=== PATIENT | female | born 1980 | race Caucasian/White ===

== ENCOUNTER 2016-03-16 00:39 | Observation (INO) | payer OTHER ==
[~2016-03-16] VITALS: Ht 170.2 cm; Wt 86.4 kg
[~2016-03-16 00:39] MED LIST: ATARAX,VISTARIL25 MG PO; GABAPENTIN300 MG PO
[2016-03-16 01:41] LABS: HEMATOCRIT 39.1 % (36.0-46.0); MCH 29.8 PG (29.0-34.0); MCV 85.2 FL (83-99); MEAN PLAT.VOLUME 10.9 uM^3 (9.5-12.4); PLATELET COUNT 213 K/uL (156-360); RBC DIS.WIDTH-CV 12.3 % (11.8-14.6); RBC DIS.WIDTH-SD 37.4 % (39-53); RED BLOOD COUNT 4.59 M/uL (3.80-5.20); WHITE BLOOD COUNT 8.1 K/uL (4.1-10.2)
[2016-03-16 01:52] LABS: CHLORIDE 111 mEq/L (99-109); POTASSIUM 3.9 mEq/L (3.7-5.4); SODIUM 140 mEq/L (136-147)
[2016-03-16 01:54] LABS: GLUCOSE 102 mg/dL (70-99)
[2016-03-16 01:56] LABS: ANION GAP 8 MEQ/L (2-14)
[2016-03-16 01:58] LABS: GFR ESTIMATE (CALCULATED) > 59 mL/min/
[2016-03-16 01:59] LABS: UREA NITROGEN (BUN) 12 mg/dL (9-23)
[2016-03-16 02:02] LABS: TROP-I INTERPRETATION NEGATIVE; TROPONIN-I < 0.01 ng/mL (0.0-0.30)
[2016-03-16] MEDS ORDERED: CLONIDINE HCL0.2 MG PO (02:28)
[2016-03-16] MEDS ORDERED: PROPRANOLOL HCL60 M1 PO (02:29)
[2016-03-16 02:30] LABS: D-DIMER ELISA 0.55 mg/L FEU (< 0.57)
[2016-03-16] MEDS ORDERED: ATARAX,VISTARIL50 MG PO ×2 (02:30→08:20)
[2016-03-16] MEDS ORDERED: PRAZOSIN HCL5 MG PO (02:31)
[2016-03-16] MEDS ORDERED: METHADONE H5 MG/5 ML PO (04:47)
[2016-03-16] MEDS ORDERED: CLONIDINE HCL0.1 MG PO (05:58)
[2016-03-16] MEDS ORDERED: GABAPENTIN400 MG PO (05:59)
[2016-03-16] MEDS ORDERED: SAPHRIS10 MG SL (06:00)
[2016-03-16] MEDS ORDERED: INDERAL LA60 MG PO (06:13)
[2016-03-16 08:17] LABS: TROP-I INTERPRETATION NEGATIVE; TROPONIN-I < 0.01 ng/mL (0.0-0.30)
[2016-03-16 14:32] LABS: TROP-I INTERPRETATION NEGATIVE; TROPONIN-I < 0.01 ng/mL (0.0-0.30)
[2016-03-16 14:44] LABS: ADD MIUA? NO; BILIRUBIN NEGATIVE; BLOOD NEGATIVE; GLUCOSE (STRIP) NEGATIVE; KETONES NEGATIVE; LEUKOCYTES NEGATIVE; NITRITE NEGATIVE; PROTEIN (STRIP) NEGATIVE; SPECIFIC GRAVITY 1.011 (1.000-1.030); UCUL ADDED? NO; UROBILINOGEN 0.2 MG/DL (0.2-1.0)
[2016-03-16 14:45] LABS: COLOR PALE STRAW ((YELLOW))
[2016-03-16 15:01] VITALS: BP 99/52
[2016-03-16] MEDS ORDERED: Vitamin B-12 SL (15:29)
[2016-03-16 15:31] VITALS: BP 100/63
[2016-03-16 15:31] LABS: AMPHETAMINES QUANT VALUE 0 NG/ML; BARBITUATES QUANT VALUE 0 NG/ML; BENZODIAZEPINES QUANT VALUE 0 NG/ML; BENZODIAZEPINES, URINE SCREEN Negative (200 ng/mL); MARIJUANA QUANT VALUE 0 NG/ML; OPIATES QUANTITATIVE VALUE 0 NG/ML; PHENCYCLIDINE QUANT VALUE 0 NG/ML
== END 2016-03-16 16:30 | disposition home or self-care (01) ==
LOC: EME 00:39 → EDOF 05:13
PROVIDERS: Hospitalist; Physician Assistant Medical
DX: R00.2 Palpitations (principal); R94.31 Abnormal electrocardiogram [ECG] [EKG]; F11.20 Opioid dependence, uncomplicated; R11.0 Nausea; I42.9 Cardiomyopathy, unspecified; Z86.711 Personal history of pulmonary embolism; F17.290 Nicotine dependence, other tobacco product, uncomplicated; Z88.8 Allergy status to other drugs, medicaments and biological substances
CPT/HCPCS: 71020; 71275; 80048; 81003; 82607; 83880; 84443; 84484; 85027; 85379; 93005; 99281; 99285; G0378; J1650; J1885; J7030; Q0169; Q0177

== ENCOUNTER 2016-04-11 22:09 | Emergency (ER) | payer OTHER ==
[~2016-04-11] VITALS: Ht 170.2 cm; Wt 95.7 kg
[~2016-04-11 22:09] MED LIST changes: +ATARAX,VISTARIL50 MG PO; +CLONIDINE HCL0.1 MG PO; +CLONIDINE HCL0.2 MG PO; +GABAPENTIN400 MG PO; +INDERAL LA60 MG PO; +METHADONE H5 MG/5 ML PO; +PRAZOSIN HCL5 MG PO; +PROPRANOLOL HCL60 M1 PO; +SAPHRIS10 MG SL; +Vitamin B-12 SL
[2016-04-11 22:51] LABS: MCH 28.9 PG (29.0-34.0); MCHC 34.9 G/DL (30.0-36.0); MEAN PLAT.VOLUME 10.7 uM^3 (9.5-12.4); PLATELET COUNT 201 K/uL (156-360); RBC DIS.WIDTH-CV 12.2 % (11.8-14.6); RBC DIS.WIDTH-SD 36.5 % (39-53); RED BLOOD COUNT 4.46 M/uL (3.80-5.20); WHITE BLOOD COUNT 8.4 K/uL (4.1-10.2)
[2016-04-11 23:02] LABS: CHLORIDE 108 mEq/L (99-109); POTASSIUM 4.1 mEq/L (3.7-5.4); SODIUM 139 mEq/L (136-147)
[2016-04-11 23:03] LABS: GLUCOSE 109 mg/dL (70-99)
[2016-04-11 23:05] LABS: ANION GAP 8 MEQ/L (2-14)
[2016-04-11 23:07] LABS: GFR ESTIMATE (CALCULATED) > 59 mL/min/
[2016-04-11 23:08] LABS: UREA NITROGEN (BUN) 12 mg/dL (9-23)
[2016-04-11 23:13] LABS: TROP-I INTERPRETATION NEGATIVE; TROPONIN-I < 0.01 ng/mL (0.0-0.30)
[2016-04-12 00:21] LABS: D-DIMER ELISA 0.65 mg/L FEU (< 0.57)
[2016-04-12 00:55] LABS: TROP-I INTERPRETATION NEGATIVE; TROPONIN-I < 0.01 ng/mL (0.0-0.30)
[2016-04-12 02:09] VITALS: BP 127/74
== END 2016-04-12 02:04 | disposition home or self-care (01) ==
LOC: EME 22:09
PROVIDERS: Emergency Medicine
DX: R07.9 Chest pain, unspecified (principal); R00.2 Palpitations; R79.1 Abnormal coagulation profile; R06.02 Shortness of breath; R42 Dizziness and giddiness; Z86.711 Personal history of pulmonary embolism; F17.200 Nicotine dependence, unspecified, uncomplicated
CPT/HCPCS: 71020; 71275; 80048; 84484; 85027; 85379; 93005; 99281; 99285

== ENCOUNTER 2016-04-13 16:34 | Emergency (ER) | payer OTHER ==
[~2016-04-13] VITALS: Ht 170.2 cm; Wt 95.3 kg
[2016-04-13 17:06] LABS: HEMATOCRIT 38.3 % (36.0-46.0); MCH 29.5 PG (29.0-34.0); MCHC 35.2 G/DL (30.0-36.0); MCV 83.8 FL (83-99); MEAN PLAT.VOLUME 10.5 uM^3 (9.5-12.4); PLATELET COUNT 224 K/uL (156-360); RBC DIS.WIDTH-CV 12.3 % (11.8-14.6); RED BLOOD COUNT 4.57 M/uL (3.80-5.20); WHITE BLOOD COUNT 9.1 K/uL (4.1-10.2)
[2016-04-13 17:18] LABS: CHLORIDE 109 mEq/L (99-109); POTASSIUM 3.9 mEq/L (3.7-5.4); SODIUM 142 mEq/L (136-147)
[2016-04-13 17:19] LABS: GLUCOSE 107 mg/dL (70-99)
[2016-04-13 17:21] LABS: ANION GAP 8 MEQ/L (2-14)
[2016-04-13 17:23] LABS: GFR ESTIMATE (CALCULATED) > 59 mL/min/
[2016-04-13 17:24] LABS: UREA NITROGEN (BUN) 9 mg/dL (9-23)
[2016-04-13 17:27] LABS: TROP-I INTERPRETATION NEGATIVE; TROPONIN-I < 0.01 ng/mL (0.0-0.30)
[2016-04-13 22:13] LABS: QUANTITATIVE HCG < 4.0 MIU/ML
[2016-04-14 00:08] VITALS: BP 143/86
== END 2016-04-14 00:09 | disposition home or self-care (01) ==
LOC: EME 16:34
DX: I49.3 Ventricular premature depolarization (principal); F17.200 Nicotine dependence, unspecified, uncomplicated; Z86.711 Personal history of pulmonary embolism
CPT/HCPCS: 71020; 80048; 84484; 84702; 85027; 93005; 99281; 99284

== ENCOUNTER 2016-05-28 18:10 | Emergency (ER) | payer OTHER ==
[~2016-05-28] VITALS: Ht 170.2 cm; Wt 98.4 kg
[2016-05-28 18:55] LABS: HEMATOCRIT 42.7 % (36.0-46.0); MCH 28.7 PG (29.0-34.0); MEAN PLAT.VOLUME 10.4 uM^3 (9.5-12.4); PLATELET COUNT 283 K/uL (156-360); RBC DIS.WIDTH-CV 12.8 % (11.8-14.6); RBC DIS.WIDTH-SD 40.3 % (39-53); RED BLOOD COUNT 4.91 M/uL (3.80-5.20); WHITE BLOOD COUNT 9.8 K/uL (4.1-10.2)
[2016-05-28 19:03] LABS: CHLORIDE 106 mEq/L (99-109); POTASSIUM 4.1 mEq/L (3.7-5.4); SODIUM 141 mEq/L (136-147)
[2016-05-28 19:05] LABS: GLUCOSE 92 mg/dL (70-99)
[2016-05-28 19:06] LABS: ANION GAP 8 MEQ/L (2-14)
[2016-05-28 19:09] LABS: GFR ESTIMATE (CALCULATED) > 59 mL/min/; UREA NITROGEN (BUN) 11 mg/dL (9-23)
[2016-05-28 19:13] LABS: TROP-I INTERPRETATION NEGATIVE; TROPONIN-I < 0.01 ng/mL (0.0-0.30)
[2016-05-28 19:54] VITALS: BP 120/77
== END 2016-05-28 19:55 | disposition home or self-care (01) ==
LOC: EME 18:10
DX: R00.2 Palpitations (principal); Z86.711 Personal history of pulmonary embolism; Z87.891 Personal history of nicotine dependence
CPT/HCPCS: 71020; 80048; 84484; 85027; 93005; 99281; 99284

== ENCOUNTER 2017-02-24 03:52 | Emergency (ER) | payer OTHER ==
[~2017-02-24] VITALS: Ht 170.2 cm; Wt 87.3 kg
[2017-02-24 04:01] VITALS: BP 153/101
[2017-02-24 04:33] LABS: HEMATOCRIT 41.5 % (36.0-46.0); HEMOGLOBIN 14.2 G/DL (11.9-15.5); MCH 30.2 PG (29.0-34.0); MCHC 34.2 G/DL (30.0-36.0); MCV 88.3 FL (83-99); PLATELET COUNT 209 K/uL (156-360); RBC DIS.WIDTH-CV 12.3 % (11.8-14.6); RBC DIS.WIDTH-SD 39.6 % (39-53); WHITE BLOOD COUNT 9.8 K/uL (4.1-10.2)
[2017-02-24 04:42] LABS: CHLORIDE 109 mEq/L (99-109); POTASSIUM 3.7 mEq/L (3.7-5.4); SODIUM 141 mEq/L (136-147)
[2017-02-24 04:44] LABS: GLUCOSE 94 mg/dL (70-99)
[2017-02-24 04:48] LABS: CREATININE 0.7 mg/dL (0.6-1.3); GFR ESTIMATE (CALCULATED) > 59 mL/min/
[2017-02-24 04:49] LABS: TROP-I INTERPRETATION NEGATIVE; TROPONIN-I < 0.01 ng/mL (0.0-0.30); UREA NITROGEN (BUN) 7 mg/dL (9-23)
[2017-02-24 04:56] LABS: QUANTITATIVE HCG < 4.0 MIU/ML
== END 2017-02-24 06:16 | disposition left against medical advice (07) ==
LOC: EME 03:52
DX: R07.9 Chest pain, unspecified (principal); R00.2 Palpitations; F41.9 Anxiety disorder, unspecified; Z87.891 Personal history of nicotine dependence; Z86.79 Personal history of other diseases of the circulatory system; Z88.8 Allergy status to other drugs, medicaments and biological substances
CPT/HCPCS: 71046; 80048; 84484; 84702; 85027; 85379; 93005

== ENCOUNTER 2017-03-08 00:31 | Emergency (ER) | payer OTHER ==
[~2017-03-08] VITALS: Ht 170.2 cm; Wt 88.9 kg
[2017-03-08 01:06] LABS: APPEARANCE SL.HAZY ((CLEAR)); BILIRUBIN NEGATIVE; BLOOD NEGATIVE; COLOR YELLOW ((YELLOW)); GLUCOSE (STRIP) NEGATIVE; KETONES NEGATIVE; LEUKOCYTES NEGATIVE; NITRITE NEGATIVE; PROTEIN (STRIP) 30; SPECIFIC GRAVITY 1.026 (1.000-1.030); UROBILINOGEN 0.2 MG/DL (0.2-1.0)
[2017-03-08 01:08] LABS: BACTERIA RARE /HPF; EPITHELIAL CELLS 1+ /HPF; MUCUS TRACE /LPF; RED BLOOD CELLS 0-5 /HPF (0-5); UCUL ADDED? NO; WHITE BLOOD CELLS 0-5 /HPF (0-5)
[2017-03-08 01:12] LABS: HEMATOCRIT 41.3 % (36.0-46.0); HEMOGLOBIN 13.9 G/DL (11.9-15.5); MCH 30.3 PG (29.0-34.0); MCHC 33.7 G/DL (30.0-36.0); PLATELET COUNT 164 K/uL (156-360); RBC DIS.WIDTH-CV 12.2 % (11.8-14.6); RBC DIS.WIDTH-SD 40.4 % (39-53); RED BLOOD COUNT 4.59 M/uL (3.80-5.20); WHITE BLOOD COUNT 8.6 K/uL (4.1-10.2)
[2017-03-08 01:22] LABS: ALBUMIN 4.2 g/dL (3.2-4.8); CHLORIDE 109 mEq/L (99-109)
[2017-03-08 01:23] LABS: POTASSIUM 4.4 mEq/L (3.7-5.4); SODIUM 142 mEq/L (136-147)
[2017-03-08 01:25] LABS: GLUCOSE 99 mg/dL (70-99); TOTAL PROTEIN 6.9 g/dL (6.4-8.3)
[2017-03-08 01:27] LABS: TOTAL BILIRUBIN 0.2 mg/dL (0.0-1.0)
[2017-03-08 01:28] LABS: ALKALINE PHOSPHATASE 85 IU/L (3-129); CREATININE 0.7 mg/dL (0.6-1.3); GFR ESTIMATE (CALCULATED) > 59 mL/min/
[2017-03-08 01:30] LABS: AST (GOT) 26 IU/L (2-34); UREA NITROGEN (BUN) 11 mg/dL (9-23)
[2017-03-08 01:31] LABS: ALT (GPT) 25 IU/L (3-49)
[2017-03-08 01:39] LABS: QUANTITATIVE HCG < 4.0 MIU/ML
[2017-03-08] MEDS ORDERED: PYRIDIUM100 MG PO (03:28)
[2017-03-08] MEDS ORDERED: ULTRAM50 MG PO (03:28)
[2017-03-08 03:40] VITALS: BP 132/88
== END 2017-03-08 03:41 | disposition home or self-care (01) ==
LOC: EME 00:31
DX: R10.9 Unspecified abdominal pain (principal); F41.9 Anxiety disorder, unspecified; Z90.49 Acquired absence of other specified parts of digestive tract; Z90.710 Acquired absence of both cervix and uterus; Z86.711 Personal history of pulmonary embolism; Z87.891 Personal history of nicotine dependence
CPT/HCPCS: 80053; 81003; 84702; 85027; 99281; 99284

== ENCOUNTER 2017-04-11 15:32 | Emergency (ER) | payer OTHER ==
[~2017-04-11] VITALS: Ht 170.2 cm; Wt 88.5 kg
[~2017-04-11 15:32] MED LIST changes: +PYRIDIUM100 MG PO; +ULTRAM50 MG PO
[2017-04-11 16:07] VITALS: BP 124/75
== END 2017-04-11 19:54 | disposition left against medical advice (07) ==
LOC: EME 15:32
DX: M54.9 Dorsalgia, unspecified (principal); Z53.21 Procedure and treatment not carried out due to patient leaving prior to being seen by health care provider

== ENCOUNTER 2017-06-23 23:36 | Emergency (ER) | payer OTHER ==
[~2017-06-23] VITALS: Ht 170.2 cm; Wt 88.7 kg
[2017-06-23 23:44] VITALS: BP 142/85
== END 2017-06-24 00:54 | disposition left against medical advice (07) ==
LOC: EME 23:36
DX: L53.9 Erythematous condition, unspecified (principal); R19.09 Other intra-abdominal and pelvic swelling, mass and lump; Z53.21 Procedure and treatment not carried out due to patient leaving prior to being seen by health care provider